=== PATIENT | female | born 1960 | race African-American/Black ===

== ENCOUNTER → 2019-04-01 | Outpatient (CLI) | payer BC ==
[2013-10-27 10:26] VITALS: BP 136/83
[~2019-04-01] MED LIST: HYDROCORTISONE28 G1 TP; IBUP-1060 PO
--- NOTE | 2019-04-01 15:18 | KCIC ---
EXAM: Dual energy x-ray absorptiometry (DEXA). HISTORY: Postmenopausal female presents for osteoporosis screening. COMPARISON: None. TECHNIQUE: Dual energy x-ray absorptiometry of the lumbar spine and left hip was performed. Calculation of bone mineral density based on standard deviations above or below the expected young adult normal value (T-score) was completed. FINDINGS: The average bone mineral density in the 1st through 4th lumbar vertebrae is 0.912 g/cmxcm, corresponding with a T-score of -1.2. The average total bone mineral density in the left hip is 0.935 g/cmxcm, corresponding with a T-score of -0.1. IMPRESSION: 1. Osteopenia measured the lumbar spine. 2. Normal bone mineral density measured at the left hip. Note: Definitions established by the World Health Organization: 1. Normal: T-score is -1.0 or above. 2. Osteopenia: T-score is between -1.0 and -2.5 . 3. Osteoporosis: T-score is -2.5 or below. Electronically signed by: Zuly Snider MD (04/01/2019 3:14 PM) [place] [id number]
--- NOTE | 2019-04-02 07:34 | KCIC ---
Bilateral digital screening mammograms: Reason for examination: Routine screening. Comparison is made to previous study dated 07/19/2011. Interpretation was made with the benefit of CAD. The skin and nipples show no abnormalities. No abnormal lymph nodes are seen. The breast parenchyma is predominantly fatty. (Breast density: Category A.) There are no dominant masses, suspicious calcifications or architectural distortions. A few benign calcifications are again seen. Impression: No evidence of malignancy. Recommend routine screening. BI-RADS Category 2: Benign. "Our facility is accredited by the [employer] Mammography Program." This patient's information has been entered into a reminder system for the patient to be notified with the results of her examination and a target date for the next mammogram. Electronically signed by: Kira Oneal MD (04/02/2019 7:31 AM) [id number]
== END | disposition home or self-care (01) ==
LOC: KCIC DEXA 13:44
PROVIDERS: ATTEND Family Medicine
DX: Z13.820 Encounter for screening for osteoporosis (principal); Z12.31 Encounter for screening mammogram for malignant neoplasm of breast; M81.0 Age-related osteoporosis without current pathological fracture; M85.88 Other specified disorders of bone density and structure, other site; N64.89 Other specified disorders of breast
CPT/HCPCS: 77067; 77080